=== PATIENT | female | born 1965 | race Native Hawaiian/Other Pacific Islander ===

== ENCOUNTER 2019-01-07 14:50 | Outpatient (CLI) | payer BC ==
[2019-01-07] MEDS ORDERED: PROZAC10 MG PO (18:49)
[2019-01-07] MEDS ORDERED: ALPR0.5T24 PO (18:49)
[2019-01-07] MEDS ORDERED: CELE200C2 PO (18:50)
[2019-01-07] MEDS ORDERED: GABA300C2 PO (18:50)
[2019-01-07] MEDS ORDERED: ADDERALL20 MG PO (18:51)
== END 2019-01-07 15:05 | disposition short-term general hospital (02) ==
LOC: AMB 14:50
DX: E86.0 Dehydration (principal)
CPT/HCPCS: A0425; A0427

== ENCOUNTER 2019-01-07 15:12 | Inpatient (IN) | payer BC ==
[~2019-01-07] VITALS: Ht 170.2 cm; Wt 92.8 kg
[2019-01-07 15:20] VITALS: BP 153/41; TEMP 98.1
[2019-01-07 16:00] LABS: PLATELET COUNT 151 K/uL (152-353)
[2019-01-07 16:18] LABS: POTASSIUM 3.3 mmol/L (3.6-5.2)
[2019-01-07 17:36] VITALS: BP 126/49
[2019-01-07 18:30] VITALS: BP 105/41; TEMP 97.8
[2019-01-07 18:41] VITALS: BP 105/41; TEMP 97.8; Ht 170.2 cm; Wt 92.8 kg
[2019-01-07] MEDS ORDERED: PROZAC10 MG PO (18:49)
[2019-01-07] MEDS ORDERED: ALPR0.5T24 PO (18:49)
[2019-01-07] MEDS ORDERED: CELE200C2 PO (18:50)
[2019-01-07] MEDS ORDERED: GABA300C2 PO (18:50)
[2019-01-07] MEDS ORDERED: ADDERALL20 MG PO (18:51)
[2019-01-07 20:02] VITALS: BP 103/50; TEMP 98.1
[2019-01-07 23:42] VITALS: BP 120/60; TEMP 97.7
[2019-01-08 04:55] LABS: PLATELET COUNT 120 K/uL (152-353)
[2019-01-08 05:16] LABS: POTASSIUM 3.3 mmol/L (3.6-5.2)
[2019-01-08 08:00] VITALS: BP 127/54; TEMP 97.7
[2019-01-08 12:00] VITALS: BP 93/47; TEMP 97.2
[2019-01-08 16:00] VITALS: BP 102/36; TEMP 97.2
[2019-01-08 20:07] VITALS: BP 105/45; TEMP 97.9
[2019-01-09 00:18] VITALS: BP 113/50; TEMP 98.1
[2019-01-09 04:38] VITALS: BP 126/50; TEMP 98.1
[2019-01-09 05:34] LABS: PLATELET COUNT 125 K/uL (152-353)
[2019-01-09 06:31] LABS: POTASSIUM 3.4 mmol/L (3.6-5.2)
[2019-01-09 12:15] VITALS: BP 146/66; TEMP 97.7
[2019-01-09 16:00] VITALS: BP 141/48; TEMP 97.8
[2019-01-09 20:50] VITALS: BP 109/50; TEMP 98
[2019-01-10 04:00] VITALS: BP 139/60; TEMP 98.4
[2019-01-10 08:08] LABS: PLATELET COUNT 145 K/uL (152-353)
[2019-01-10 08:25] LABS: POTASSIUM 3.3 mmol/L (3.6-5.2)
[2019-01-10 20:00] VITALS: BP 140/64; TEMP 98.2
[2019-01-11] VITALS: BP 119/57
[2019-01-11 04:00] VITALS: BP 113/59; TEMP 98.3
[2019-01-11 05:48] LABS: PLATELET COUNT 180 K/uL (152-353)
[2019-01-11 06:15] LABS: POTASSIUM 3.6 mmol/L (3.6-5.2)
[2019-01-11 08:00] VITALS: BP 127/53; TEMP 97.9
[2019-01-11 18:15] VITALS: BP 108/49; TEMP 98.8
[2019-01-11 20:51] VITALS: BP 99/51; TEMP 99.2
[2019-01-12 00:44] VITALS: BP 113/45; TEMP 99.2
[2019-01-12 04:14] VITALS: BP 129/57; TEMP 98.9
[2019-01-12 08:00] VITALS: BP 134/60; TEMP 99.3
[2019-01-12 12:00] VITALS: BP 126/49; TEMP 99.2
[2019-01-12 16:00] VITALS: BP 113/43; TEMP 98
[2019-01-12 20:05] VITALS: BP 142/63; TEMP 98.7
[2019-01-13 00:21] VITALS: BP 104/52; TEMP 100.7
[2019-01-13 04:35] LABS: PLATELET COUNT 246 K/uL (152-353)
[2019-01-13 04:41] LABS: POTASSIUM 3.7 mmol/L (3.6-5.2)
[2019-01-13 04:50] VITALS: BP 135/60; TEMP 100.4
[2019-01-13 08:30] VITALS: BP 102/40; TEMP 98.1
[2019-01-13 12:00] VITALS: BP 130/44; TEMP 98.1
[2019-01-13 20:00] VITALS: BP 107/51; TEMP 98.6
[2019-01-14] VITALS: BP 135/69; TEMP 100
[2019-01-14 04:00] VITALS: BP 105/45; TEMP 98.4
[2019-01-14 08:05] VITALS: BP 100/46; TEMP 98.1
[2019-01-14 12:00] VITALS: BP 128/53; TEMP 98.2
[2019-01-14 16:00] VITALS: BP 105/48; TEMP 98.3
[2019-01-14 20:00] VITALS: BP 94/36; TEMP 98.5
[2019-01-15] VITALS: BP 75/33; TEMP 98.1
[2019-01-15 04:00] VITALS: BP 87/38; TEMP 98.6
[2019-01-15 07:54] LABS: PLATELET COUNT 320 K/uL (152-353)
[2019-01-15 08:00] VITALS: BP 107/46; TEMP 98.1
[2019-01-15 08:32] LABS: POTASSIUM 3.3 mmol/L (3.6-5.2)
[2019-01-15 12:00] VITALS: BP 89/36; TEMP 97.9
[2019-01-15 16:00] VITALS: BP 123/45; TEMP 99
[2019-01-15 20:24] VITALS: BP 100/46; TEMP 98.6
[2019-01-16 00:43] VITALS: BP 107/47; TEMP 97.7
[2019-01-16 03:57] VITALS: BP 101/50; TEMP 97.78
[2019-01-16 08:00] VITALS: BP 86/51; TEMP 98.3
[2019-01-16 12:00] VITALS: BP 101/38; TEMP 98.3
[2019-01-16 16:00] VITALS: BP 118/43; TEMP 97.8
[2019-01-16 20:07] VITALS: BP 135/64; TEMP 98.9
[2019-01-17 00:02] VITALS: BP 129/56; TEMP 98.8
[2019-01-17 04:32] VITALS: BP 91/57; TEMP 98.8
[2019-01-17 09:34] LABS: PLATELET COUNT 446 K/uL (152-353)
[2019-01-17 09:43] LABS: POTASSIUM 5.4 mmol/L (3.6-5.2)
== END 2019-01-17 10:55 | disposition short-term general hospital (02) | DRG 193 ==
LOC: ED 15:12 → MED/SURG 17:30
PROVIDERS: Family Medicine; Internal Medicine; ADMIT Allergy & Immunology
PROC: 30233N1 Transfusion of Nonautologous Red Blood Cells into Peripheral Vein, Percutaneous Approach (ICD-10-PCS; principal; 2019-01-17)
DX: J18.8 Other pneumonia, unspecified organism (principal); I26.99 Other pulmonary embolism without acute cor pulmonale; J96.01 Acute respiratory failure with hypoxia; D70.8 Other neutropenia; F90.8 Attention-deficit hyperactivity disorder, other type; F41.8 Other specified anxiety disorders; E86.0 Dehydration; E87.6 Hypokalemia; F42.9 Obsessive-compulsive disorder, unspecified; D69.6 Thrombocytopenia, unspecified
CPT/HCPCS: 31500; 36415; 36600; 80048; 80053; 81000; 82306; 82525; 82550; 82607; 82747; 82805; 83605; 83735; 84100; 84439; 84443; 84481; 84484; 85007; 85014; 85018; 85027; 86850; 86900; 86901; 86922; 87040; 87070; 87205; 87278; 87502; 87899; 92950; 94002; 94640; 94664; 94668; 94760; 96361; 96365; 96366; 96367; 96372; 96374; 96375; 99284; C1768; J0132; J0171; J0330; J0456; J0696; J1265; J1335; J1650; J1885; J2270; J2405; J2543; J2930; J3475; J3490; P9016; Q9963

== ENCOUNTER 2019-01-16 17:05 | Outpatient (CLI) | payer BC ==
[~2019-01-16 17:05] MED LIST: ADDERALL20 MG PO; ALPR0.5T24 PO; CELE200C2 PO; GABA300C2 PO; PROZAC10 MG PO
== END 2019-01-16 17:27 | disposition short-term general hospital (02) ==
LOC: AMB 17:05
DX: J18.8 Other pneumonia, unspecified organism (principal); I26.99 Other pulmonary embolism without acute cor pulmonale; J96.01 Acute respiratory failure with hypoxia; D70.8 Other neutropenia; F90.8 Attention-deficit hyperactivity disorder, other type; F41.8 Other specified anxiety disorders; E86.0 Dehydration; E87.6 Hypokalemia; F42.9 Obsessive-compulsive disorder, unspecified; D69.6 Thrombocytopenia, unspecified
CPT/HCPCS: A0425; A0426